=== PATIENT | male | born 1990 ===

== ENCOUNTER → 2021-12-17 | Outpatient (CLI) | payer OTHER ==
[2021-12-17 09:11] LABS: Potassium 3.9 mmol/L (3.5-5.1)
[2021-12-17 09:15] LABS: BUN/Creatinine Ratio 8.3; Calcium 8.8 mg/dL (8.5-10.1)
== END | disposition home or self-care (01) ==
LOC: XYW 07:58
DX: J34.1 Cyst and mucocele of nose and nasal sinus (principal)
CPT/HCPCS: 36415; 70486; 80048